=== PATIENT | female | born 1945 | race Caucasian/White ===

== ENCOUNTER 2023-07-14 09:53 | Day surgery (SDC) | payer MEDICARE, OTHER ==
[~2023-07-14] VITALS: Ht 165.1 cm; Wt 109.9 kg
[~2023-07-14 09:53] MED LIST: ASPI81EC PO; DIOVAN PO; HCTZ PO; LEVSOD100 PO; METF500 PO; ROSU10TA PO
[2023-07-14] MEDS ORDERED: LOSA50 (10:11)
[2023-07-14] MEDS ORDERED: FINA5 (10:12)
[2023-07-14] MEDS ORDERED: MINO2.5 (10:12)
--- NOTE | 2023-07-14 10:25 | NUR ---
07/14/23 1025 Brunilda Samuel TETRACAINE PLACED IN RIGHT EYE AT 1011. PLEDGET PLACED IN RIGHT EYE AT 1012. PATIENT TOLERATED WELL.
[2023-07-14 11:15] VITALS: BP 123/69
--- NOTE | 2023-07-14 11:40 | NUR ---
07/14/23 1140 Tony Harrison IV REMOVED INTACT. SITE WNL.
== END 2023-07-14 11:36 | disposition home or self-care (01) ==
LOC: ORSCSDS 09:53
PROVIDERS: Ophthalmology
PROC: 08RJ3JZ Replacement of Right Lens with Synthetic Substitute, Percutaneous Approach (ICD-10-PCS; principal; 2023-07-14 11:00)
DX: E11.36 Type 2 diabetes mellitus with diabetic cataract (principal); H25.13 Age-related nuclear cataract, bilateral; I10 Essential (primary) hypertension; E03.9 Hypothyroidism, unspecified; E78.5 Hyperlipidemia, unspecified; Z79.84 Long term (current) use of oral hypoglycemic drugs; Z79.899 Other long term (current) drug therapy
CPT/HCPCS: 82947; J2250; J3010; J3301; J7040; V2632

== ENCOUNTER 2023-07-21 09:47 | Day surgery (SDC) | payer MEDICARE, OTHER ==
[~2023-07-21] VITALS: Ht 165.1 cm; Wt 109.5 kg
[~2023-07-21 09:47] MED LIST changes: +FINA5; +LOSA50; +MINO2.5
--- NOTE | 2023-07-21 10:18 | NUR ---
07/21/23 1018 Brunilda Samuel TETRACAINE PLACED IN LEFT EYE AT 1007. PLEDGET PLACED IN LEFT EYE AT 1009. PATIENT TOLERATED WELL.
[2023-07-21 11:25] VITALS: BP 133/65
--- NOTE | 2023-07-21 11:41 | NUR ---
07/21/23 1141 Tony Harrison PT STATES RECORDED VITALS BASELINE FOR HER. IV REMOVED INTACT. SITE WNL.
== END 2023-07-21 11:39 | disposition home or self-care (01) ==
LOC: ORSCSDS 09:47
PROVIDERS: Ophthalmology
PROC: 08RK3JZ Replacement of Left Lens with Synthetic Substitute, Percutaneous Approach (ICD-10-PCS; principal; 2023-07-21 11:00)
DX: E11.36 Type 2 diabetes mellitus with diabetic cataract (principal); H25.12 Age-related nuclear cataract, left eye; Z96.1 Presence of intraocular lens; I10 Essential (primary) hypertension; E03.9 Hypothyroidism, unspecified; Z79.84 Long term (current) use of oral hypoglycemic drugs; Z79.899 Other long term (current) drug therapy
CPT/HCPCS: 82947; J2250; J3010; J3301; J7040; V2632

== ENCOUNTER → 2025-06-06 | Outpatient (CLI) | payer OTHER | LOC: LAB SHORT 11:28 → LAB 11:28 | DX: B37.89 Other sites of candidiasis (principal) | CPT/HCPCS: 87070; 87205 ==

== ENCOUNTER → 2025-07-16 | Outpatient (CLI) | payer OTHER | END | disposition home or self-care (01) | LOC: LAB 11:53 → LAB SHORT 11:53 | DX: L08.0 Pyoderma (principal) | CPT/HCPCS: 87070; 87205 ==